=== PATIENT | female | born 1955 | race Caucasian/White ===

== ENCOUNTER → 2020-06-14 | Outpatient (CLI) | payer MEDICARE ==
--- NOTE | 2020-06-14 11:28 | REP ---
REASON: Atherosclerosis. RIGHT: HITESH unobtainable. CAPTAIN/AIRLINE PILOT 132.2 cm/s Triphasic Profunda 93.8 cm/s Triphasic SFA proximal 138.8 cm/s Triphasic SFA mid 112.8 cm/s Triphasic SFA distal 113.5 cm/s Triphasic Popliteal 61.8 cm/s Triphasic FRANCESCA proximal 63.1 cm/s Biphasic Tibioperoneal Trunk 92.5 cm/s Biphasic CLAIMS ADJUSTER proximal 94.7 cm/s Biphasic CLAIMS ADJUSTER distal 36.5 cm/s Biphasic FRANCESCA distal 46.8 cm/s Biphasic LEFT: HITESH unobtainable. CAPTAIN/AIRLINE PILOT 139.6 cm/s Triphasic Profunda 77.8 cm/s Triphasic SFA proximal 129.8 cm/s Triphasic SFA mid 89.1 cm/s Triphasic SFA distal 78.7 cm/s Triphasic Popliteal 90.2 cm/s Triphasic FRANCESCA proximal 86.5 cm/s Biphasic Tibioperoneal Trunk 96.6 cm/s Triphasic CLAIMS ADJUSTER proximal 49.6 cm/s Triphasic CLAIMS ADJUSTER distal 52.4 cm/s Biphasic FRANCESCA distal 35.8 cm/s Monophasic The tech has made note in the worksheet that the examination is somewhat limited due to the patient's body habitus. No stenosis was identified. Electronically Signed by Denzel Gonzalez DO 06/14/2020 11:29 A
== END ==
LOC: M RAD 08:12
PROVIDERS: ATTEND Physician Assistant
DX: R09.89 Other specified symptoms and signs involving the circulatory and respiratory systems (principal)

== ENCOUNTER → 2020-07-09 | Outpatient (CLI) | payer MEDICARE ==
--- NOTE | 2020-08-21 07:27 | REP ---
BILATERAL LOWER EXTREMITY DUPLEX DOPPLER VENOUS ULTRASOUND WITH EVALUATION FOR VENOUS REFLUX: HISTORY: Venous insufficiency. TECHNIQUE: Real time compression and duplex Doppler interrogation of bilateral lower extremity deep venous systems is performed. FINDINGS: Bilaterally, the common femoral, superficial femoral, and popliteal veins are fully compressible with transducer pressure and demonstrate normal spontaneous and phasic flow without evidence of deep venous thrombosis. Evaluation for venous reflux in the right lower extremity demonstrates minimal reflux in the common femoral vein and proximal superficial femoral vein. There is an anterior accessory greater saphenous vein present without reflux. There is reflux in the greater saphenous vein at the saphenofemoral junction with a duration of 4.7 seconds, AP diameter 9 mm, and also at the mid thigh level with a duration of 4.2 seconds, AP diameter 7 mm, and at the level of the knee 4.6 duration, AP diameter 8 mm. There is no reflux in the lesser saphenous vein, which measures 4 mm. On the left, there is no reflux in any of the deep veins. There is an anterior accessory greater saphenous vein present with reflux with a duration of 3.8 seconds. There is reflux in the greater saphenous vein at the saphenofemoral junction with a duration of 4.1 seconds, AP diameter 7 mm, and also at the mid thigh with a duration of 4.5 seconds, AP diameter 77, and at the knee 4.3 seconds duration, AP diameter 3 mm. There is no reflux in the lesser saphenous vein, which measures 2 mm. MTDD
== END ==
LOC: M RAD 15:04
PROVIDERS: ATTEND Physician Assistant
DX: I87.2 Venous insufficiency (chronic) (peripheral) (principal); M79.604 Pain in right leg; M79.605 Pain in left leg

== ENCOUNTER → 2025-04-12 | Outpatient (CLI) | payer MEDICARE ==
[2025-04-12 15:33] LABS: BASO # 0.1 10^3/uL (0.0-0.2); BASO % 0.7 % (0.0-1.0); EOS % 0.6 % (0.0-3.0); HEMATOCRIT 45.4 % (36.0-47.0); HEMOGLOBIN 14.6 g/dl (12.0-15.5); LYMPH # 2.6 10^3/uL (1.5-5.0); LYMPH % 36.9 % (24.0-44.0); MEAN CORPUSCULAR HEMOGLOBIN 29.9 pg (27.0-33.0); MEAN CORPUSCULAR HGB CONC 32.2 g/dl (32.0-36.5); MONO # 0.6 10^3/uL (0.0-0.8); MONO % 8.1 % (2.0-8.0); NEUTROPHILS # 3.7 10^3/uL (1.5-8.5); NEUTROPHILS % 53.4 % (36.0-66.0); PLATELET COUNT, AUTOMATED 377 10^3/uL (150-450); RED BLOOD COUNT 4.88 10^6/uL (4.00-5.40); WHITE BLOOD COUNT 6.9 10^3/uL (4.0-10.0)
[2025-04-12 15:59] LABS: ERYTHROCYTE SEDIMENTATION RATE 39 mm/hr (0-30)
[2025-04-12 16:00] LABS: FREE T4 1.59 NG/DL (0.89-1.76); THYROID STIMULATING HORMONE 2.365 uIU/ML (0.55-4.78)
[2025-04-17 16:11] LABS: ANA SCREEN, IFA NEGATIVE (NEGATIVE)
[2025-04-17 20:03] LABS: VITAMIN E(ALPHA TOCOPHEROL) 12.5 mg/L (5.7-19.9); VITAMIN E(GAMMA TOCOPHEROL) 1.7 mg/L (<=4.3)
[2025-04-18 17:57] LABS: VITAMIN B1 LEVEL WHOLE BLOOD 128 nmol/L (78-185)
[2025-04-18 18:17] LABS: VITAMIN B6,PYRIDOXAL PHOSPHATE 4.1 ng/mL (2.1-21.7)
== END ==
LOC: M PLALAB 14:00
PROVIDERS: ATTEND Psychiatry & Neurology Neurology
DX: E07.9 Disorder of thyroid, unspecified (principal); E53.8 Deficiency of other specified B group vitamins; R41.3 Other amnesia